=== PATIENT | male | born 1990 | race African-American/Black ===

== ENCOUNTER 2023-10-29 16:05 | Emergency (ER) | payer MEDICAID ==
[~2023-10-29] VITALS: Ht 167.6 cm; Wt 91.0 kg
[2023-10-29 16:18] VITALS: BP 141/98; PULSE 115; RESP 16; TEMP 100.1; O2SAT 98
[2023-10-29 16:56] LABS: BASOPHILS % 0.2 % (0.0-2.0); HEMATOCRIT. 46.9 % (42.0-52.0); HEMOGLOBIN. 15.8 g/dL (14.0-18.0); LYMPHOCYTES % 7.5 % (20.0-50.0); MEAN CORPUSCULAR HEMOGLOBIN 30.9 pg (28.0-32.0); MEAN CORPUSCULAR HGB CONC 33.6 g/dL (31.0-37.0); MEAN PLATELET VOLUME 6.8 fl (7.4-10.4); MONOCYTES % 9.2 % (2.0-8.0); NEUTROPHILS % 83.1 % (40.0-76.0); PLATELET 251 x1000/uL (130-400); RED CELL DISTRIBUTION WIDTH 13.1 % (11.6-14.6); WHITE BLOOD COUNT 8.8 x1000/uL (4.5-11.0)
[2023-10-29 17:09] LABS: ALANINE AMINOTRANSFERASE 56 IU/L (10-49); ALBUMIN 4.6 g/dL (3.2-4.8); ASPARTATE AMINOTRANSFERASE 28 IU/L (<34); BILIRUBIN TOTAL 0.8 mg/dL (0.1-1.0); CALCIUM 9.3 mg/dL (8.7-10.4); CARBON DIOXIDE 23 mEq/L (21-32); CHLORIDE 102 mEq/L (98-107); CREATININE 1.1 mg/dL (0.6-1.3); GLUCOSE 114 mg/dL (70-105); POTASSIUM 3.9 mEq/L (3.5-5.1); PROTEIN TOTAL 8.1 g/dL (6.0-8.3); SODIUM 135 mEq/L (136-145); UREA NITROGEN BLOOD 11 mg/dL (9-23)
[2023-10-29] MEDS ORDERED: PANTOPRAZOLE 40MG DR TABLET PO ONE (21:45)
[2023-10-29] MEDS ORDERED: ONDANSETRON 4MG ODT PO ONE (21:45)
[2023-10-29] MEDS ORDERED: SODIUM CHLORIDE 0.9% 1,000 ML IV ONE (21:45)
[2023-10-30] MEDS ORDERED: PROT40 MT (00:03)
[2023-10-30] MEDS ORDERED: TOPUD MT (00:03)
[2023-10-30] MEDS ORDERED: DIPH1TAB24 MT (00:03)
[2023-10-30] MEDS ORDERED: ONDA4TAB50 MT (00:03)
== END 2023-10-30 00:56 | disposition home or self-care (01) ==
LOC: ER 16:05
DX: K52.9 Noninfective gastroenteritis and colitis, unspecified (principal); J45.909 Unspecified asthma, uncomplicated; Z20.822 Contact with and (suspected) exposure to COVID-19
CPT/HCPCS: 99284; 96360; 87426; 80053; 83690; 85025; 36415; 93005; Q0162; J7030

== ENCOUNTER 2023-12-21 09:17 | Emergency (ER) | payer MEDICAID ==
[~2023-12-21] VITALS: Ht 172.7 cm; Wt 99.0 kg
[~2023-12-21 09:17] MED LIST: DIPH1TAB24 MT; ONDA4TAB50 MT; PROT40 MT; TOPUD MT
[2023-12-21 09:19] VITALS: BP 128/87; PULSE 82; RESP 20; TEMP 98.5; O2SAT 98
[2023-12-21] MEDS ORDERED: IBUP-2029 MT (12:02)
== END 2023-12-21 13:27 | disposition home or self-care (01) ==
LOC: ER 09:17
DX: S09.90XA Unspecified injury of head, initial encounter (principal); S63.501A Unspecified sprain of right wrist, initial encounter; J45.909 Unspecified asthma, uncomplicated; Z79.899 Other long term (current) drug therapy; W18.39XA Other fall on same level, initial encounter; Y93.89 Activity, other specified; Y92.89 Other specified places as the place of occurrence of the external cause; Y99.8 Other external cause status
CPT/HCPCS: 73110; 73130; 99284

== ENCOUNTER 2024-02-03 19:23 | Emergency (ER) | payer MEDICAID ==
[~2024-02-03] VITALS: Ht 167.6 cm; Wt 105.2 kg
[~2024-02-03 19:23] MED LIST changes: +IBUP-2029 MT
[2024-02-03 19:41] VITALS: TEMP 97.9; O2SAT 100
[2024-02-03] MEDS: TETANUS, DIPHTHERIA, PERTUSSIS VAC/PF 0.5ML (>10YR OLD) IM ONE (22:10)
[2024-02-03] MEDS: LIDOCAINE HCL/PF 1% 10 MG/ML 5ML VIAL INFIL ONE (22:12)
[2024-02-03] MEDS ORDERED: AMOX1TAB16 MT (22:19)
[2024-02-03 22:57] VITALS: BP 164/108; PULSE 91; RESP 14
[2024-02-03] MEDS: KETOROLAC 15MG/ML VIAL IM ONE (22:57)
== END 2024-02-03 22:45 | disposition home or self-care (01) ==
LOC: ER 19:23
DX: L03.012 Cellulitis of left finger (principal); J45.909 Unspecified asthma, uncomplicated; Z79.899 Other long term (current) drug therapy
CPT/HCPCS: 90715; 10060; 90471; 96372; 99284; J1885; J3490; Z7610 ×4

== ENCOUNTER 2024-06-09 12:36 | Emergency (ER) | payer MEDICAID ==
[~2024-06-09] VITALS: Ht 167.6 cm; Wt 105.0 kg
[~2024-06-09 12:36] MED LIST changes: +AMOX1TAB16 MT; +DIPH-1091 MT; -DIPH1TAB24 MT
[2024-06-09 12:42] VITALS: O2SAT 99
[2024-06-09 12:55] VITALS: BP 120/74; PULSE 100; RESP 18; TEMP 98; O2SAT 98
[2024-06-09 13:16] LABS: HEMOGLOBIN 15.9 g/dL (14.0-18.0); MEAN CORPUSCULAR HEMOGLOBIN 31.4 pg (28.0-32.0); MEAN CORPUSCULAR HGB CONC 33.7 g/dL (31.0-37.0); MEAN CORPUSCULAR VOLUME 93.1 fL (80.0-94.0); PLATELET 305 x1000/uL (130-400); RED BLOOD CELL COUNT 5.05 mill/uL (4.7-6.1); RED CELL DISTRIBUTION WIDTH 13.3 % (11.6-14.6)
[2024-06-09 13:25] LABS: CHLORIDE 107 mEq/L (98-107); POTASSIUM 3.9 mEq/L (3.5-5.1); SODIUM 138 mEq/L (136-145)
[2024-06-09 13:26] LABS: CALCIUM 9.6 mg/dL (8.7-10.4); CARBON DIOXIDE 24 mEq/L (21-32)
[2024-06-09 13:31] LABS: CREATININE 1.1 mg/dL (0.6-1.3); GLUCOSE 110 mg/dL (70-105); UREA NITROGEN BLOOD 5 mg/dL (9-23)
[2024-06-09 13:33] LABS: ALANINE AMINOTRANSFERASE 84 IU/L (10-49); ALBUMIN 4.8 g/dL (3.2-4.8); ASPARTATE AMINOTRANSFERASE 46 IU/L (<34); BILIRUBIN TOTAL 0.6 mg/dL (0.1-1.0); PROTEIN TOTAL 7.8 g/dL (6.0-8.3)
[2024-06-09 13:34] LABS: CLARITY URINE CLEAR (CLEAR); COLOR URINE YELLOW (YELLOW); GLUCOSE URINE NEGATIVE (NEGATIVE); KETONES URINE NEGATIVE (NEGATIVE); LEUKOCYTE ESTERASE URINE NEGATIVE (NEGATIVE); NITRITE URINE NEGATIVE (NEGATIVE); OCCULT BLOOD URINE NEGATIVE (NEGATIVE); PROTEIN URINE NEGATIVE (NEGATIVE); SPECIFIC GRAVITY URINE 1.017 (1.005-1.030); UROBILINOGEN URINE 0.2 E.U./dL (0.2-1.0)
[2024-06-09 14:39] LABS: TROPONIN I HIGH SENSITIVITY < 4 ng/L (3.0-53)
== END 2024-06-09 16:28 | disposition home or self-care (01) ==
LOC: ER 12:36
DX: R05.9 Cough, unspecified (principal); R55 Syncope and collapse; R07.89 Other chest pain; E78.00 Pure hypercholesterolemia, unspecified; J45.909 Unspecified asthma, uncomplicated; Z20.822 Contact with and (suspected) exposure to COVID-19; Z98.890 Other specified postprocedural states
CPT/HCPCS: 36415; 71046; 80053; 81003; 83880; 84484; 85027; 87426; 93005; 99285

== ENCOUNTER 2025-03-20 18:24 | Emergency (ER) | payer MEDICAID ==
[~2025-03-20] VITALS: Ht 162.6 cm; Wt 105.0 kg
[2025-03-20 18:31] VITALS: O2SAT 97
[2025-03-20] MEDS: KETOROLAC 30MG/ML VIAL IM ONE (21:05)
[2025-03-20 21:07] VITALS: TEMP 36.9
[2025-03-20] MEDS ORDERED: AMOX1TAB16 MT (22:08)
[2025-03-20] MEDS ORDERED: FLUT9.9S BOTHNSTRLS (22:08)
[2025-03-20] MEDS ORDERED: KETO10TA2 MT (22:10)
[2025-03-20 22:41] VITALS: BP 142/91; PULSE 87; RESP 18; O2SAT 98
== END 2025-03-20 22:45 | disposition home or self-care (01) ==
LOC: ER 18:24
DX: S02.2XXA Fracture of nasal bones, initial encounter for closed fracture (principal); J32.0 Chronic maxillary sinusitis; E78.00 Pure hypercholesterolemia, unspecified; J45.909 Unspecified asthma, uncomplicated; Z79.899 Other long term (current) drug therapy; Y04.0XXA Assault by unarmed brawl or fight, initial encounter; Y93.89 Activity, other specified; Y92.89 Other specified places as the place of occurrence of the external cause; Y99.8 Other external cause status
CPT/HCPCS: 70486; 96372; 99285; J1885; Z7610 ×3; A4606